=== PATIENT | female | born 1950 ===

== ENCOUNTER 2017-02-02 09:39 | Emergency (ER) | payer MEDICARE, OTHER ==
[2017-02-02 09:57] VITALS: BP 183/92; PULSE 71; TEMP 96; O2SAT 97; BMI 30.9
[2017-02-02] MEDS ORDERED: Sodium Chloride 0.9% 1,000 ML IV STA (10:29)
--- NOTE | 2017-02-02 10:37 | ED PDOC ---
HPI: General Adult Time Seen by Provider: 02/02/17 10:16 Chief Complaint (Nursing): Female Genitourinary Chief Complaint (Provider): Dysuria History Per: Patient History/Exam Limitations: no limitations Onset/Duration Of Symptoms: Days (2 weeks) Current Symptoms Are (Timing): Still Present Additional Complaint(s): Pain on urination, urinates frequently. No abd pain, back pain, dizziness, headaches, numbness, tingles. No chest pain, dyspnea. No fever. States blood in urine today. No weakness. Saw pcp and gave her medicine for symptoms but no antibiotics. Past Medical History Reviewed: Nursing Documentation, Vital Signs Vital Signs: Last Vital Signs Temp 96 F L 02/02/17 09:56 Pulse 71 02/02/17 09:56 Resp BP 183/92 H 02/02/17 09:56 Pulse Ox 97 02/02/17 10:37 - Medical History PMH: Diabetes, HTN, Hypercholesterolemia - Family History Family History: States: Unknown Family Hx - Social History Current smoker - smoking cessation education provided: No Alcohol: None Drugs: Denies - Home Medications Home Medications: Ambulatory Orders Medication Instructions Recorded Hydrocortisone 1% Cream [Cortizone 1 appl TP BID PRN #1 tube 07/06/16 1% Cream] Lisinopril [Zestril] 5 mg PO DAILY 07/06/16 Memantine [Namenda] 5 mg PO DAILY 07/06/16 Ciprofloxacin HCl [Cipro] 500 mg PO BID 7 Days tab 02/02/17 - Allergies Allergies/Adverse Reactions: Allergies Allergy/AdvReac Type Severity Reaction Status Date / Time No Known Allergies Allergy Verified 02/14/15 03:24 Review of Systems ROS Statement: Except As Marked, All Systems Reviewed And Found Negative Genitourinary Female: Positive for: Dysuria, Frequency Physical Exam - Reviewed Nursing Documentation Reviewed: Yes Vital Signs Reviewed: Yes - Physical Exam Appears: Positive for: Well, Non-toxic, No Acute Distress Head Exam: Positive for: ATRAUMATIC, NORMAL INSPECTION, NORMOCEPHALIC Skin: Positive for: Normal Color, Warm, DRY Eye Exam: Positive for: EOMI, Normal appearance, PERRL ENT: Positive for: Normal ENT Inspection Neck: Positive for: Normal, Painless ROM Cardiovascular/Chest: Positive for: Regular Rate, Rhythm Respiratory: Positive for: CNT, Normal Breath Sounds Gastrointestinal/Abdominal: Positive for: Normal Exam, Bowel Sounds, Soft. Negative for: Tenderness Back: Positive for: Normal Inspection. Negative for: L CVA Tenderness, R CVA Tenderness Extremity: Positive for: Normal ROM. Negative for: Tenderness, Pedal Edema Neurologic/Psych: Positive for: Alert, Oriented - Laboratory Results Result Diagrams: 02/02/17 11:00 02/02/17 11:00 Interpretation Of Abn Labs: urine wbc - ECG O2 Sat by Pulse Oximetry: 97 Pulse Ox Interpretation: Normal - CT Scan/US CT Other Rad Studies (CT/US): Read By Radiologist Other Rad Interpretation: adrenal mass - Progress ED Course And Treament: 1401: Stable. AAOx3. Pain free. Patient aware of dx and need for fu of her adrenal mass for further evaluation and treatment. 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 YOU NEED FURTHER EVALUATION AND TREATMENT FOR IT. SEE YOUR DOCTOR IN 2-3 DAYS WITHOUT FAIL. Return if not better in 3 days. Prescriptions: Ciprofloxacin HCl [Cipro] 500 mg PO BID 7 Days tab Instructions: Urinary Tract Infection in Women (ED) Forms: [employer] ([place])
[2017-02-02 11:07] LABS: BASO # 0.1 K/uL (0.0-0.2); BASO % 0.7 % (0.0-2.0); EOS # 0.3 K/uL (0.0-0.7); HEMATOCRIT 41.6 % (34.0-47.0); LYMPH # 2.2 K/uL (1.0-4.3); LYMPH % 23.1 % (20.0-40.0); MEAN CELL VOLUME 87.2 fl (81.0-99.0); MEAN CORPUSCULAR HEMOGLOBIN 29.7 pg (27.0-31.0); MEAN PLATELET VOLUME 8.2 fl (7.2-11.7); MONO # 0.5 K/uL (0.0-0.8); NEUT # 6.4 K/uL (1.8-7.0); NEUT % 68.2 % (50.0-75.0); RED CELL DISTRIBUTION WIDTH 13.6 % (11.5-14.5); WHITE BLOOD COUNT 9.4 K/uL (4.8-10.8)
[2017-02-02 11:11] LABS: RBC URINE 2289 /hpf (0-3); URINE BACTERIA FEW (<OCC); URINE BILIRUBIN NEGATIVE (NEGATIVE); URINE BLOOD LARGE (NEGATIVE); URINE COLOR AMBER (YELLOW); URINE GLUCOSE (UA) NEG (Normal); URINE KETONE NEGATIVE (NEGATIVE); URINE LEUKOCYTE ESTERASE LARGE Leu/uL (Negative); URINE PROTEIN 100 mg/dL (NEGATIVE); URINE UROBILINOGEN 0.2-1.0 mg/dL (0.2-1.0); WBC CLUMPS MANY /hpf; WBC URINE 984 /hpf (0-5)
[2017-02-02 11:13] LABS: ALB/GLOB RATIO 1.3 (1.0-2.1); ALKALINE PHOSPHATASE 67 U/L (38-126); ALT/SGPT 22 U/L (9-52); AST/SGOT 39 U/L (14-36); BILIRUBIN,TOTAL 0.9 mg/dl (0.2-1.3); BLOOD UREA NITROGEN 16 mg/dl (7-17); CALCIUM 9.4 mg/dL (8.4-10.2); CARBON DIOXIDE 24 mmol/L (22-30); CHLORIDE 103 mmol/L (98-107); GFR AFRICAN-AMERICAN > 60; GLUCOSE,RANDOM 111 mg/dL (65-105); SODIUM 140 mmol/l (132-148); TOTAL PROTEIN 8.3 G/DL (6.3-8.2)
[2017-02-02 11:17] LABS: POTASSIUM 4.9 MMOL/L (3.6-5.0)
--- NOTE | 2017-02-02 13:52 | CT ---
PROCEDURE: CT abdomen pelvis dated 02/02/2017. HISTORY: R/O stone COMPARISON: None. TECHNIQUE: Contiguous helical/transaxial images of the abdomen and pelvis pelvis performed without oral or intravenous contrast. Coronal and Sagittal reformats generated. Radiation dose: Total exam DLP = 930.91 mGy-cm. This CT exam was performed using one or more of the following dose reduction techniques: Automated exposure control, adjustment of the mA and/or kV according to patient size, and/or use of iterative reconstruction technique. FINDINGS: LOWER THORAX: There are areas of irregular and linear chronic scarring changes both lung bases that extend to the posterior pleural surfaces. No effusion or basilar pneumothorax. Heart is enlarged. No significant pericardial effusion. LIVER: Liver is enlarged measuring nearly 20 cm in CC dimension. No obvious hepatic mass collection or calcification. GALLBLADDER AND BILE DUCTS: Gallbladder is physiologically distended. No evidence of intraluminal gallbladder calculi. PANCREAS: Pancreas is slightly atrophic. No pancreatic mass collection or calcification. No significant pancreatic ductal dilatation. SPLEEN: Spleen exhibits normal size and attenuation pattern without mass collection or calcification. ADRENALS: There is a large elliptical shaped left adrenal mass that measures approximately 3.5 x 2.7 cm x 3.0. Hounsfield units range between the 9 -- 14 and probably represents an adenoma. Note however lesions greater than 4 cm have increased risk of malignancy. Follow-up MRI of the adrenal glands recommended for further evaluation. Interval followups should also be performed to assess for any changes. KIDNEYS AND URETERS: The kidneys demonstrate relatively symmetric size. No evidence of nephrolithiasis or hydronephrosis. BLADDER: Urinary bladder is physiologically distended. No evidence of intraluminal urinary bladder calculi. . REPRODUCTIVE: Uterus and adnexal structures grossly unremarkable. APPENDIX: Appendix is not seen with complete certainty however 5 no obvious inflammatory changes right lower quadrant of the abdomen. . BOWEL: Evaluation of the bowel is limited due to the lack of oral contrast material. . . The stomach is incompletely distended which presumably accounts for thick-walled appearance. Visualized loops of small bowel exhibit normal contour and caliber. No evidence of acute mechanical small bowel obstruction. Stool and air seen throughout the colon. Scattered colonic diverticula the bulk of which arise from the sigmoid and distal descending colon. No radiographic evidence of acute diverticulitis. PERITONEUM: Unremarkable. No fluid collection. No free air. LYMPH NODES: No significant/ bulky adenopathy. VASCULATURE: Unremarkable. No aortic aneurysm. BONES: No fracture or destructive lesion. OTHER FINDINGS: None. IMPRESSION: No evidence of nephrolithiasis or hydronephrosis. . No evidence of intraluminal urinary bladder calculi. . Elliptical shaped left adrenal mass that measures approximately 3.5 x 2.7 cm x 3.0. Hounsfield units range between the 9 -- 14 and probably represents an adenoma. Note however lesions the greater than 4 cm have increased risk of malignancy. Follow-up MRI of the adrenal glands recommended for further evaluation. Interval followups should also be performed to assess for any changes. Mild hepatomegaly.
== END 2017-02-02 14:21 | disposition home or self-care (01) ==
LOC: H.ER 09:39
DX: N39.0 Urinary tract infection, site not specified (principal); E27.9 Disorder of adrenal gland, unspecified; E11.9 Type 2 diabetes mellitus without complications; E78.00 Pure hypercholesterolemia, unspecified; I10 Essential (primary) hypertension
CPT/HCPCS: 74176; 80053; 81003; 85025; 87086; 96374; 99282; J1885; J7040

== ENCOUNTER 2017-05-14 15:56 | Inpatient (IN) | payer MEDICARE ==
[2017-05-14 15:57] VITALS: BMI 30.9
--- NOTE | 2017-05-14 16:46 | ED PDOC ---
Syncope/Near Syncope/Dizziness Time Seen by Provider: 05/14/17 16:05 Chief Complaint (Nursing): Syncope Chief Complaint (Provider): Syncope History Per: Patient History/Exam Limitations: no limitations Onset/Duration Of Symptoms: Days (1 day ago) Current Symptoms Are (Timing): Gone Now Number Of Syncopal Episodes: 1 Activity At Onset Of Symptoms: Walking Seizure Or Post-ictal Symptoms: None Fall Associated With With Symptoms: No Injury As Result Of Fall Additional Complaint(s): 67 yea old female with a past medical history of hypertension, gastritis and borderline diabetes presents to the ED post syncopal episode. The patient reports that around midnight lastnight she passed out. She states that she was walking in her house and the next thing she knew she was laying on the ground bleeding from the face laying in her own urine and stool. As per patient, the EMS were called but she declined transport at said time. The reports that she spent the entire day today in bed before her family was able to convince her to come in to the hospital to be evaluated. In addition, the patient states that for the past week she has had a cough productive of white sputum. Patient also notes some mild rhinnorhea. The patient states that she had been taking over the counter medication for relief of her symtoms but they have not offered much help. According to the patients granddaughter, at [place] the patient seemed a bit slow and confused. Denies hemoptysis, fever, abdominal pain, fever, vomit. PMD: Travis Bee - Risk Factors TAD Risk Factors: Pos: Hypertension Past Medical History Reviewed: Historical Data, Nursing Documentation, Vital Signs Vital Signs: Last Vital Signs Temp 97 F L 05/14/17 16:00 Pulse 48 L 05/14/17 16:00 Resp 20 05/14/17 16:00 BP 129/73 05/14/17 16:00 Pulse Ox 100 05/14/17 16:00 - Medical History PMH: Diabetes (borderline), HTN, Hypercholesterolemia - Surgical History Surgical History: Appendectomy - Family History Family History: States: Unknown Family Hx - Living Arrangements Living Arrangements: With Family - Social History Current smoker - smoking cessation education provided: No Ex-Smoker (has not smoked in the last 12 months): No Alcohol: None Drugs: Denies - Home Medications Home Medications: Ambulatory Orders Medication Instructions Recorded Lisinopril/Hydrochlorothiazide 1 each PO HS 05/14/17 [Lisinopril-Hctz 20-12.5 mg Tab] Pheniramine/P-Eph/Acetaminophn 1 each PO PRN PRN 05/14/17 [Theraflu Flu & Sore Throat] - Allergies Allergies/Adverse Reactions: Allergies Allergy/AdvReac Type Severity Reaction Status Date / Time No Known Allergies Allergy Verified 02/14/15 03:24 Review of Systems ROS Statement: Except As Marked, All Systems Reviewed And Found Negative (and as per HPI) Constitutional: Negative for: Fever, Chills ENT: Positive for: Nose Discharge Respiratory: Positive for: Cough (productive of white sputum), Sputum (white). Negative for: Hemoptysis Gastrointestinal: Positive for: Diarrhea. Negative for: Vomiting, Abdominal Pain Neurological: Positive for: Other (syncope) Physical Exam - Reviewed Nursing Documentation Reviewed: Yes Vital Signs Reviewed: Yes - Physical Exam Appears: Positive for: Non-toxic, No Acute Distress Head Exam: Positive for: ATRAUMATIC, NORMOCEPHALIC Skin: Positive for: Warm, Dry, Pallor Eye Exam: Positive for: EOMI, PERRL ENT: Positive for: Pharynx Is (clear with dry mucus membranes), Other ( superficial irregular linear laceration 1 cm upper lip inner mucosa with mild edema) Neck: Positive for: Painless ROM, Supple Cardiovascular/Chest: Positive for: Chest Non Tender, Bradycardia. Negative for : Murmur Respiratory: Positive for: Normal Breath Sounds. Negative for: Wheezing, Respiratory Distress Gastrointestinal/Abdominal: Positive for: Soft. Negative for: Tenderness, Mass , Distended, Guarding Back: Positive for: Normal Inspection. Negative for: Decreased ROM Extremity: Positive for: Normal ROM. Negative for: Deformity Lymphatic: Negative for: Adenopathy Neurologic/Psych: Positive for: Alert. Negative for: Motor/Sensory Deficits - Laboratory Results Result Diagrams: 05/14/17 16:39 05/14/17 16:39 - ECG ECG Rhythm: Positive for: Sinus Bradycardia, Nonspecific Changes O2 Sat by Pulse Oximetry: 100 (RA) Pulse Ox Interpretation: Normal Medical Decision Making Medical Decision Makin Initial Impression 68 y/o female presenting with syncope and bradycardia Pt will need hospitalization for full cardiac workup to determine cause and correct bradycardia, which most likely contributed to this patient's syncope and reported episodes of altered mental status. Differentials: arrhythmia, hypothyroidism, electrolyte abnormality, acute coronary syndrome, sepsis, dehydration, pneumonia Initial Plan: * Type and Screen * VBG * CT Head w/o Contrast * CT Maxillofacial w/o Contrast * EKG * Alcohol Serum * B-type natriuretic * CMP * CPK * Drug Screen * Magnesium * Phosphorous * Thyroid Stimulant * Troponin * Udip * CBC * Partial Thromboplastin * Prothrombin time * CXR * Blood culture * Accucheck * Influenza A B * Reevaluation 1655 PROCEDURE: CT HEAD WITHOUT CONTRAST. HISTORY: head injury bradycardi COMPARISON: None available. TECHNIQUE: Axial computed tomography images were obtained through the head/brain without intravenous contrast. Radiation dose: Total exam DLP = 808.07 mGy-cm. This CT exam was performed using one or more of the following dose reduction techniques: Automated exposure control, adjustment of the mA and/or kV according to patient size, and/or use of iterative reconstruction technique. FINDINGS: HEMORRHAGE: No intracranial hemorrhage. BRAIN: No mass effect or edema. No atrophy or chronic microvascular ischemic changes. VENTRICLES: Unremarkable. No hydrocephalus. CALVARIUM: Unremarkable. PARANASAL SINUSES: Mucoperiosteal thickening in right maxillary antrum and ethmoid sinus. MASTOID AIR CELLS: Unremarkable as visualized. No inflammatory changes. OTHER FINDINGS: None. IMPRESSION: No intracranial hemorrhage. Chronic right maxillary and ethmoid sinusitis. Otherwise unremarkable. 170 PROCEDURE: CT MAXILLOFACIAL BONES WITHOUT CONTRAST HISTORY: facial injury sp syncope COMPARISON: None TECHNIQUE: Contiguous axial CT images of the maxillofacial bones were obtained. Coronal and sagittal reformats were generated. Radiation dose: Total exam DLP = 692.61 mGy-cm. This CT exam was performed using one or more of the following dose reduction techniques: Automated exposure control, adjustment of the mA and/or kV according to patient size, and/or use of iterative reconstruction technique. FINDINGS: NASAL BONES: Unremarkable. ORBITS: Unremarkable. PARANASAL SINUSES/ MASTOIDS: Chronic right maxillary sinusitis. Chronic ethmoid sinusitis. MAXILLA: Unremarkable. MANDIBLE/ TEMPOROMANDIBULAR JOINTS: Unremarkable. SKULL BASE: Unremarkable. TEMPORAL BONES: Middle ears and mastoid grossly unremarkable. OTHER FINDINGS: None. IMPRESSION: No evidence facial fracture. Chronic ethmoid and right maxillary sinusitis. Elevated BUN. No emergently significant lab abnormalities. Documented by Chioma Murphy acting as a scribe for Anna Lopez MD. All medical record entries made by the Scribe were at my direction and personally dictated by me. I have reviewed the chart and agree that the record accurately reflects my personal performance of the history, physical exam, medical decision making, and the department course for this patient. I have also personally directed, reviewed, and agree with the discharge instructions and disposition. Disposition - Clinical Impression Clinical Impression: Syncope, Bradycardia, Altered mental status Discussed With : Bob Farias Counseled Patient/Family Regarding: Studies Performed, Diagnosis - Disposition Disposition Time: 17:00 Condition: GUARDED - Pt Status Changed To: Hospital Disposition Of: Observation - POA Present On Arrival: Falls Or Trauma
[2017-05-14 16:55] LABS: ALBUMIN 4.6 g/dL (3.5-5.0); CALCIUM 9.5 mg/dL (8.4-10.2); GFR AFRICAN-AMERICAN 60; GFR NON-AFRICAN AMERICAN 49
[2017-05-14 16:57] LABS: BASO % 0.7 % (0.0-2.0); EOS # 0.1 K/uL (0.0-0.7); EOS % 1.9 % (0.0-4.0); HEMOGLOBIN 13.3 g/dL (12.0-16.0); LYMPH # 2.7 K/uL (1.0-4.3); LYMPH % 38.5 % (20.0-40.0); MEAN CORPUSCULAR HEMOGLOBIN 29.4 pg (27.0-31.0); MEAN CORPUSCULAR HGB CONC 34.2 g/dL (33.0-37.0); MONO # 0.6 K/uL (0.0-0.8); NEUT # 3.5 K/uL (1.8-7.0); NEUT % 49.9 % (50.0-75.0); NRBC % 0.1 % (0.0-0.0); RBC 4.52 Mil/uL (3.80-5.20); RED CELL DISTRIBUTION WIDTH 14.1 % (11.5-14.5)
--- NOTE | 2017-05-14 16:59 | CT ---
PROCEDURE: CT HEAD WITHOUT CONTRAST. HISTORY: head injury bradycardi COMPARISON: None available. TECHNIQUE: Axial computed tomography images were obtained through the head/brain without intravenous contrast. Radiation dose: Total exam DLP = 808.07 mGy-cm. This CT exam was performed using one or more of the following dose reduction techniques: Automated exposure control, adjustment of the mA and/or kV according to patient size, and/or use of iterative reconstruction technique. FINDINGS: HEMORRHAGE: No intracranial hemorrhage. BRAIN: No mass effect or edema. No atrophy or chronic microvascular ischemic changes. VENTRICLES: Unremarkable. No hydrocephalus. CALVARIUM: Unremarkable. PARANASAL SINUSES: Mucoperiosteal thickening in right maxillary antrum and ethmoid sinus. MASTOID AIR CELLS: Unremarkable as visualized. No inflammatory changes. OTHER FINDINGS: None. IMPRESSION: No intracranial hemorrhage. Chronic right maxillary and ethmoid sinusitis. Otherwise unremarkable.
[2017-05-14 17:03] LABS: ALB/GLOB RATIO 1.2 (1.0-2.1); ALT/SGPT 36 U/L (9-52); AST/SGOT 32 U/L (14-36); BLOOD UREA NITROGEN 40 mg/dl (7-17); MAGNESIUM 2.6 MG/DL (1.6-2.3)
--- NOTE | 2017-05-14 17:03 | CT ---
PROCEDURE: CT MAXILLOFACIAL BONES WITHOUT CONTRAST HISTORY: facial injury sp syncope COMPARISON: None TECHNIQUE: Contiguous axial CT images of the maxillofacial bones were obtained. Coronal and sagittal reformats were generated. Radiation dose: Total exam DLP = 692.61 mGy-cm. This CT exam was performed using one or more of the following dose reduction techniques: Automated exposure control, adjustment of the mA and/or kV according to patient size, and/or use of iterative reconstruction technique. FINDINGS: NASAL BONES: Unremarkable. ORBITS: Unremarkable. PARANASAL SINUSES/ MASTOIDS: Chronic right maxillary sinusitis. Chronic ethmoid sinusitis. MAXILLA: Unremarkable. MANDIBLE/ TEMPOROMANDIBULAR JOINTS: Unremarkable. SKULL BASE: Unremarkable. TEMPORAL BONES: Middle ears and mastoid grossly unremarkable. OTHER FINDINGS: None. IMPRESSION: No evidence facial fracture. Chronic ethmoid and right maxillary sinusitis.
[2017-05-14 17:06] LABS: VENOUS BLOOD GAS BASE EXCESS 2.5 mmol/L (0.0-2.0); VENOUS BLOOD GAS PCO2 45 mmHg (40-60); VENOUS BLOOD GAS PO2 45 mm/Hg (30-55)
[2017-05-14 17:06] LABS: B-TYPE NATRIURETIC PEPTIDE 49.2 pg/ml (0-900); PARTIAL THROMBOPLASTIN TIME 25.7 Seconds (25.6-37.1); PROTHROMBIN TIME 11.4 Seconds (9.8-13.1)
[2017-05-14] MEDS ORDERED: Sodium Chloride 0.9% 500 ML IV STA (17:10)
--- NOTE | 2017-05-14 17:52 | RAD ---
HISTORY: bradycardia cough COMPARISON: 12/21/2007 FINDINGS: LUNGS: Linear scar, vertically-oriented, at left base. Unchanged from 2008. No acute infiltrate. PLEURA: No significant pleural effusion identified, no pneumothorax apparent. CARDIOVASCULAR: Normal. OSSEOUS STRUCTURES: No significant abnormalities. VISUALIZED UPPER ABDOMEN: Normal. OTHER FINDINGS: None. IMPRESSION: No active disease.
[2017-05-14 18:24] LABS: SQUAMOUS EPITHIAL 4 /hpf (0-5); URINE BACTERIA RARE (<OCC); URINE BILIRUBIN NEGATIVE (NEGATIVE); URINE BLOOD NEGATIVE (NEGATIVE); URINE CLARITY SLIGHTY-CLOUDY (Clear); URINE COLOR YELLOW (YELLOW); URINE GLUCOSE (UA) NEG (Normal); URINE LEUKOCYTE ESTERASE TRACE Leu/uL (Negative); URINE NITRATE NEGATIVE (NEGATIVE); URINE PROTEIN NEGATIVE (NEGATIVE); URINE UROBILINOGEN 0.2-1.0 mg/dL (0.2-1.0)
[2017-05-14 18:33] LABS: BARBITURATES, UR NEGATIVE (NEGATIVE); BENZODIAZEPINES, UR NEGATIVE (NEGATIVE); OPIATES, UR NEGATIVE (NEGATIVE); PHENCYCLIDINE, UR NEGATIVE (NEGATIVE)
[2017-05-14] MEDS ORDERED: Alum-Mag Hydrox-Simethicone Susp (30 mL) PO PRN (18:38)
--- NOTE | 2017-05-14 18:44 | CP.PCM.HP ---
History of Present Illness - History of Present Illness History of Present Illness: CC: "I passed out" This is a 67 year old female with a past medical history significant for Type 2 DM, Essential hypertension, prediabetes (on no diabetic medications), and gastritis, who presented to the ED with c/o syncope. The patient states that last night around midnight she was walking from her bed to the bathroom and the next thing she knew she was lying facedown on the ground. She was confused when she woke up and stated that she was very weak at first and it took her an unknown amount of time to get up off of the ground. She was also incontinent of both urine and feces. She did not bite her tongue, but does have small upper lip abrasion and forehead abrasion. When she woke up her forehead and the floor had some blood on it as well. EMT was initially called, however she then decided to call them off. Throughout the day today, the patient c/o being very weak and tired. Of note over the past week she has had cough, occasionally productive of sputum. In the ED, the patient was placed on telemetry and found to have HR in the low 40's. BP was normotensive, however as per the family the patient was always in the systolic 150's so a blood pressure in the 120's systolic was abnormal for her. Laboratory results reveal a normal CBC and normal CMP other than a mildly elevated BUN of 40, but normal Cr of 1.1. CT scan of the head was performed and showed no acute intracranial abnormalities. Maxillofacial CT scan was also done which revealed sinusitis but otherwise no abnormalities. Both cardiology and neurology to be called as the patient has concern for seizure vs arrhythmia as etiology of her syncope. The patient denies headache, cp, sob, n/v/d, weakness. She has never had hx of arrhythmias or of seizures ever in her life. She has never seen a nursing home director before. PMD: Travis Bee Present on Admission - Present on Admission Any Indicators Present on Admission: No Review of Systems - Review of Systems All systems: reviewed and no additional remarkable complaints except (what was dictated in HPI.) Past Patient History - Infectious Disease Hx of Infectious Diseases: None - Past Social History Alcohol: None Drugs: Denies - CARDIAC Hx Hypercholesterolemia: Yes Hx Hypertension: Yes - ENDOCRINE/METABOLIC Hx Diabetes Mellitus Type 2: Yes - PSYCHIATRIC Hx Substance Use: No - SURGICAL HISTORY Hx Appendectomy: Yes Meds Allergies/Adverse Reactions: Allergies Allergy/AdvReac Type Severity Reaction Status Date / Time No Known Allergies Allergy Verified 02/14/15 03:24 Physical Exam - Additional Findings Additional findings: Physical exam: Constitutional- cooperative, awake, alert Head- + Abrasion to upper lip, small forehead abrasion. PERRL Eye- PERRL, EOMI ENT- normal exam, MMM. Neck- normal inspection, supple, no JVD Respiratory- CTAB, no wheezes rales rhonchi Cardiovascular- RRR, +S1, +S2 no MRG GI/Abdominal- normal bowel sounds, soft, no mass, no hsm Skin- warm, dry Extremities Exam- normal capillary refill, normal inspection Neurological Exam- alert, awake, oriented Psych- normal mood, normal affect Results - Vital Signs Recent Vital Signs: Last Vital Signs Temp 98.4 F 05/14/17 18:07 Pulse 48 L 05/14/17 18:07 Resp 12 05/14/17 18:07 BP 125/75 05/14/17 18:07 Pulse Ox 98 05/14/17 18:07 - Labs Result Diagrams: 05/14/17 16:39 05/14/17 16:39 Labs: Laboratory Results - last 24 hr 05/14/17 05/14/17 05/14/17 16:16 16:29 16:30 WBC RBC Hgb Hct MCV MCH MCHC RDW Plt Count MPV Neut % (Auto) Lymph % (Auto) [place] % (Auto) Eos % (Auto) Baso % (Auto) Neut # Lymph # [place] # Eos # Baso # PT INR APTT pO2 45 VBG pH 7.40 VBG pCO2 45 VBG HCO3 26.4 VBG Total CO2 29.3 H VBG O2 Sat (Calc) 85.1 H VBG Base Excess 2.5 H VBG Potassium 3.3 L Sodium 135.0 Chloride 107.0 Glucose 108 H Lactate 1.8 FiO2 21.0 Potassium Carbon Dioxide Anion Gap BUN Creatinine Est GFR ( Amer) Est GFR (Non-Af Amer) POC Glucose (mg/dL) 97 Random Glucose Calcium Phosphorus Magnesium Total Bilirubin AST ALT Alkaline Phosphatase Total Creatine Kinase Troponin I NT-Pro-B Natriuret Pep Total Protein Albumin Globulin Albumin/Globulin Ratio TSH 3rd Generation Venous Blood Potassium 3.3 L Urine Color Urine Clarity Urine pH Ur Specific [place] Urine Protein Urine Glucose (UA) Urine Ketones Urine Blood Urine Nitrate Urine Bilirubin Urine Urobilinogen Ur Leukocyte Esterase Urine RBC (Auto) Urine Microscopic WBC Ur Squamous Epith Cells Urine Bacteria Hyaline Casts Urine Opiates Screen Urine Methadone Screen Ur Barbiturates Screen Ur Phencyclidine Scrn Ur Amphetamines Screen U Benzodiazepines Scrn U Oth Cocaine Metabols U Cannabinoids Screen Alcohol, Quantitative Influenza Typ A,B (EIA) Blood Type O POSITIVE Antibody Screen Negative BBK History Checked No verified bt 05/14/17 05/14/17 05/14/17 16:39 16:39 16:39 WBC 7.0 RBC 4.52 Hgb 13.3 Hct 38.9 MCV 86.0 MCH 29.4 MCHC 34.2 RDW 14.1 Plt Count 179 MPV 9.0 Neut % (Auto) 49.9 L Lymph % (Auto) 38.5 [place] % (Auto) 9.0 Eos % (Auto) 1.9 Baso % (Auto) 0.7 Neut # 3.5 Lymph # 2.7 [place] # 0.6 Eos # 0.1 Baso # 0.0 PT 11.4 INR 1.0 APTT 25.7 pO2 VBG pH VBG pCO2 VBG HCO3 VBG Total CO2 VBG O2 Sat (Calc) VBG Base Excess VBG Potassium Sodium 139 Chloride 103 Glucose Lactate FiO2 Potassium 3.8 Carbon Dioxide 27 Anion Gap 13 BUN 40 H Creatinine 1.1 Est GFR ( Amer) 60 Est GFR (Non-Af Amer) 49 POC Glucose (mg/dL) Random Glucose 104 Calcium 9.5 Phosphorus 4.1 Magnesium 2.6 H Total Bilirubin 0.6 AST 32 ALT 36 Alkaline Phosphatase 59 Total Creatine Kinase 67 Troponin I 0.0130 NT-Pro-B Natriuret Pep 49.2 Total Protein 8.4 H Albumin 4.6 Globulin 3.8 Albumin/Globulin Ratio 1.2 TSH 3rd Generation 0.98 Venous Blood Potassium Urine Color Urine Clarity Urine pH Ur Specific [place] Urine Protein Urine Glucose (UA) Urine Ketones Urine Blood Urine Nitrate Urine Bilirubin Urine Urobilinogen Ur Leukocyte Esterase Urine RBC (Auto) Urine Microscopic WBC Ur Squamous Epith Cells Urine Bacteria Hyaline Casts Urine Opiates Screen Urine Methadone Screen Ur Barbiturates Screen Ur Phencyclidine Scrn Ur Amphetamines Screen U Benzodiazepines Scrn U Oth Cocaine Metabols U Cannabinoids Screen Alcohol, Quantitative < 10 Influenza Typ A,B (EIA) Blood Type Antibody Screen BBK History Checked 05/14/17 05/14/17 05/14/17 16:48 17:33 17:39 WBC RBC Hgb Hct MCV MCH MCHC RDW Plt Count MPV Neut % (Auto) Lymph % (Auto) [place] % (Auto) Eos % (Auto) Baso % (Auto) Neut # Lymph # [place] # Eos # Baso # PT INR APTT pO2 VBG pH VBG pCO2 VBG HCO3 VBG Total CO2 VBG O2 Sat (Calc) VBG Base Excess VBG Potassium Sodium Chloride Glucose Lactate FiO2 Potassium Carbon Dioxide Anion Gap BUN Creatinine Est GFR ( Amer) Est GFR (Non-Af Amer) POC Glucose (mg/dL) Random Glucose Calcium Phosphorus Magnesium Total Bilirubin AST ALT Alkaline Phosphatase Total Creatine Kinase Troponin I NT-Pro-B Natriuret Pep Total Protein Albumin Globulin Albumin/Globulin Ratio TSH 3rd Generation Venous Blood Potassium Urine Color Yellow Urine Clarity Slighty-cloudy Urine pH 5.0 Ur Specific [place] 1.011 Urine Protein Negative Urine Glucose (UA) Neg Urine Ketones Negative Urine Blood Negative Urine Nitrate Negative Urine Bilirubin Negative Urine Urobilinogen 0.2-1.0 Ur Leukocyte Esterase Trace Urine RBC (Auto) 3 Urine Microscopic WBC 16 H Ur Squamous Epith Cells 4 Urine Bacteria Rare Hyaline Casts 3-5 H Urine Opiates Screen Negative Urine Methadone Screen Negative Ur Barbiturates Screen Negative Ur Phencyclidine Scrn Negative Ur Amphetamines Screen Negative U Benzodiazepines Scrn Negative U Oth Cocaine Metabols Negative U Cannabinoids Screen Negative Alcohol, Quantitative Influenza Typ A,B (EIA) Negative for flu a/b Blood Type Antibody Screen BBK History Checked Assessment & Plan - Assessment and Plan (Free Text) Plan: ASSESSMENT/PLAN 1) Syncope in the setting of bradycardia, unclear etiology, r/o cardiogenic ( sick sinus syndrome), also neurogenic (r/o seizure etiology) - Admit to telemetry floor - Consultation with Dr. Kenney - Echocardiogram - EKG daily - Troponin WNL - Consultation with Dr. Shepard for seizure workup - pt bradycardic but otherwise hemodynamically stable for telemetry floor. 2) Essential hypertension- normotensive at this point - Holding all antihypertensive medications - Monitor vitals - Restart her lisinopril/HCTZ if BP increases 3) Prediabetes hx - No hyperglycemia on admission - Monitor with BMP for now 4) Adrenal mass as previously documented - Worked up in the past, no evidence of elevated metanephrine levels - Patient to have biopsy scheduled as outpatient 5) Hx gastritis - Maalox PRN 6) DVT prophylaxis - SCDs as pt is a fall risk
[2017-05-14] MEDS ORDERED: guaiFENesin 200 mg/10 ml Syrup UD PO PRN (20:14)
[2017-05-14] MEDS ORDERED: Bacitracin/Neomycin/Polymyxin OPHT OINT OD SCH (21:00)
[2017-05-14 21:34] LABS: HDL CHOLESTEROL 23 MG/DL (30-70); LDL CHOLESTEROL 84 mg/dL (0-129)
[2017-05-15 07:59] LABS: HEMOGLOBIN 12.3 g/dL (12.0-16.0); MEAN CELL VOLUME 86.8 fl (81.0-99.0); MEAN CORPUSCULAR HEMOGLOBIN 29.6 pg (27.0-31.0); MEAN CORPUSCULAR HGB CONC 34.1 g/dL (33.0-37.0); RBC 4.16 Mil/uL (3.80-5.20); RED CELL DISTRIBUTION WIDTH 13.9 % (11.5-14.5)
[2017-05-15 08:33] LABS: BLOOD UREA NITROGEN 24 mg/dl (7-17); CALCIUM 9.1 mg/dL (8.4-10.2); GFR AFRICAN-AMERICAN > 60; GFR NON-AFRICAN AMERICAN > 60
--- NOTE | 2017-05-15 09:07 | CP.PCM.CON ---
History of Present Illness - History of Present Illness History of Present Illness: 67 y/o admitted with Syncope LOC was sudden w/o warning NO chest pain/SOB/AGEE/Palpitations/dizziness has never had dizzy episodes prior claims when she got up she found she was lying in a pool of urine Cardiology consult called for bradycardia Pt has had bradycardia for at least 2 years has never had a problem with this PMH: Hypertension DM II Gastritis EKG: Sinus Bradycardia Troponin: neg Past Patient History - Infectious Disease Hx of Infectious Diseases: None - Past Medical History & Family History Past Medical History?: Yes - Past Social History Smoking Status: Never Smoked - CARDIAC Hx Hypercholesterolemia: Yes Hx Hypertension: Yes - PULMONARY Hx Respiratory Disorders: No - NEUROLOGICAL Hx Neurological Disorder: No - HEENT Hx HEENT Problems: No - RENAL Hx Chronic Kidney Disease: No - ENDOCRINE/METABOLIC Hx Diabetes Mellitus Type 2: Yes - HEMATOLOGICAL/ONCOLOGICAL Hx Blood Disorders: No Hx AIDS: No Hx Human Immunodeficiency Virus (HIV): No - INTEGUMENTARY Hx Dermatological Problems: No - MUSCULOSKELETAL/RHEUMATOLOGICAL Hx Musculoskeletal Disorders: No Hx Falls: Yes - GASTROINTESTINAL Hx Gastritis: Yes - GENITOURINARY/GYNECOLOGICAL Hx Genitourinary Disorders: No - PSYCHIATRIC Hx Substance Use: No - SURGICAL HISTORY Hx Appendectomy: Yes - ANESTHESIA Hx Anesthesia: Yes Hx Anesthesia Reactions: No Meds Allergies/Adverse Reactions: Allergies Allergy/AdvReac Type Severity Reaction Status Date / Time No Known Allergies Allergy Verified 02/14/15 03:24 - Medications Medications: Current Medications Acetaminophen (Tylenol 325mg Tab) 650 mg PO Q6 PRN PRN Reason: Pain, Mild (1-3) Last Admin: 05/15/17 08:23 Dose: 650 mg Al Hydrox/Mg Hydrox/Simethicone (Maalox Plus 30 Ml) 30 ml PO Q6 PRN PRN Reason: Indigestion / Heartburn Guaifenesin (Robitussin) 200 mg PO Q6 PRN PRN Reason: Cough Last Admin: 05/15/17 08:25 Dose: 200 mg Mirtazapine (Remeron) 15 mg PO HS STAS Last Admin: 05/14/17 22:47 Dose: Not Given Physical Exam - Constitutional Appears: Well - Eye Exam Eye Exam: Normal appearance - ENT Exam ENT Exam: Normal Exam - Respiratory Exam Respiratory Exam: NORMAL BREATHING PATTERN - Cardiovascular Exam Cardiovascular Exam: REGULAR RHYTHM Additional comments: heart rate at time of exam is 68 BPM Results - Vital Signs Recent Vital Signs: Last Vital Signs Temp 98.4 F 05/15/17 08:26 Pulse 52 L 05/15/17 08:26 Resp 18 05/15/17 08:26 BP 128/63 05/15/17 08:26 Pulse Ox 93 L 05/15/17 08:26 - Labs Result Diagrams: 05/15/17 06:30 05/15/17 06:30 Labs: Laboratory Results - last 24 hr 05/14/17 05/14/17 05/14/17 16:16 16:29 16:30 WBC RBC Hgb Hct MCV MCH MCHC RDW Plt Count MPV Neut % (Auto) Lymph % (Auto) [place] % (Auto) Eos % (Auto) Baso % (Auto) Neut # Lymph # [place] # Eos # Baso # PT INR APTT pO2 45 VBG pH 7.40 VBG pCO2 45 VBG HCO3 26.4 VBG Total CO2 29.3 H VBG O2 Sat (Calc) 85.1 H VBG Base Excess 2.5 H VBG Potassium 3.3 L Sodium 135.0 Chloride 107.0 Glucose 108 H Lactate 1.8 FiO2 21.0 Potassium Carbon Dioxide Anion Gap BUN Creatinine Est GFR ( Amer) Est GFR (Non-Af Amer) POC Glucose (mg/dL) 97 Random Glucose Calcium Phosphorus Magnesium Total Bilirubin AST ALT Alkaline Phosphatase Total Creatine Kinase Troponin I NT-Pro-B Natriuret Pep Total Protein Albumin Globulin Albumin/Globulin Ratio Triglycerides Cholesterol LDL Cholesterol Direct HDL Cholesterol TSH 3rd Generation Venous Blood Potassium 3.3 L Urine Color Urine Clarity Urine pH Ur Specific [place] Urine Protein Urine Glucose (UA) Urine Ketones Urine Blood Urine Nitrate Urine Bilirubin Urine Urobilinogen Ur Leukocyte Esterase Urine RBC (Auto) Urine Microscopic WBC Ur Squamous Epith Cells Urine Bacteria Hyaline Casts Urine Opiates Screen Urine Methadone Screen Ur Barbiturates Screen Ur Phencyclidine Scrn Ur Amphetamines Screen U Benzodiazepines Scrn U Oth Cocaine Metabols U Cannabinoids Screen Alcohol, Quantitative Influenza Typ A,B (EIA) Blood Type O POSITIVE Antibody Screen Negative BBK History Checked No verified bt 05/14/17 05/14/17 05/14/17 16:39 16:39 16:39 WBC 7.0 RBC 4.52 Hgb 13.3 Hct 38.9 MCV 86.0 MCH 29.4 MCHC 34.2 RDW 14.1 Plt Count 179 MPV 9.0 Neut % (Auto) 49.9 L Lymph % (Auto) 38.5 [place] % (Auto) 9.0 Eos % (Auto) 1.9 Baso % (Auto) 0.7 Neut # 3.5 Lymph # 2.7 [place] # 0.6 Eos # 0.1 Baso # 0.0 PT 11.4 INR 1.0 APTT 25.7 pO2 VBG pH VBG pCO2 VBG HCO3 VBG Total CO2 VBG O2 Sat (Calc) VBG Base Excess VBG Potassium Sodium 139 Chloride 103 Glucose Lactate FiO2 Potassium 3.8 Carbon Dioxide 27 Anion Gap 13 BUN 40 H Creatinine 1.1 Est GFR ( Amer) 60 Est GFR (Non-Af Amer) 49 POC Glucose (mg/dL) Random Glucose 104 Calcium 9.5 Phosphorus 4.1 Magnesium 2.6 H Total Bilirubin 0.6 AST 32 ALT 36 Alkaline Phosphatase 59 Total Creatine Kinase 67 Troponin I 0.0130 NT-Pro-B Natriuret Pep 49.2 Total Protein 8.4 H Albumin 4.6 Globulin 3.8 Albumin/Globulin Ratio 1.2 Triglycerides Cholesterol LDL Cholesterol Direct HDL Cholesterol TSH 3rd Generation 0.98 Venous Blood Potassium Urine Color Urine Clarity Urine pH Ur Specific [place] Urine Protein Urine Glucose (UA) Urine Ketones Urine Blood Urine Nitrate Urine Bilirubin Urine Urobilinogen Ur Leukocyte Esterase Urine RBC (Auto) Urine Microscopic WBC Ur Squamous Epith Cells Urine Bacteria Hyaline Casts Urine Opiates Screen Urine Methadone Screen Ur Barbiturates Screen Ur Phencyclidine Scrn Ur Amphetamines Screen U Benzodiazepines Scrn U Oth Cocaine Metabols U Cannabinoids Screen Alcohol, Quantitative < 10 Influenza Typ A,B (EIA) Blood Type Antibody Screen BBK History Checked 05/14/17 05/14/17 05/14/17 16:48 17:33 17:39 WBC RBC Hgb Hct MCV MCH MCHC RDW Plt Count MPV Neut % (Auto) Lymph % (Auto) [place] % (Auto) Eos % (Auto) Baso % (Auto) Neut # Lymph # [place] # Eos # Baso # PT INR APTT pO2 VBG pH VBG pCO2 VBG HCO3 VBG Total CO2 VBG O2 Sat (Calc) VBG Base Excess VBG Potassium Sodium Chloride Glucose Lactate FiO2 Potassium Carbon Dioxide Anion Gap BUN Creatinine Est GFR ( Amer) Est GFR (Non-Af Amer) POC Glucose (mg/dL) Random Glucose Calcium Phosphorus Magnesium Total Bilirubin AST ALT Alkaline Phosphatase Total Creatine Kinase Troponin I NT-Pro-B Natriuret Pep Total Protein Albumin Globulin Albumin/Globulin Ratio Triglycerides Cholesterol LDL Cholesterol Direct HDL Cholesterol TSH 3rd Generation Venous Blood Potassium Urine Color Yellow Urine Clarity Slighty-cloudy Urine pH 5.0 Ur Specific [place] 1.011 Urine Protein Negative Urine Glucose (UA) Neg Urine Ketones Negative Urine Blood Negative Urine Nitrate Negative Urine Bilirubin Negative Urine Urobilinogen 0.2-1.0 Ur Leukocyte Esterase Trace Urine RBC (Auto) 3 Urine Microscopic WBC 16 H Ur Squamous Epith Cells 4 Urine Bacteria Rare Hyaline Casts 3-5 H Urine Opiates Screen Negative Urine Methadone Screen Negative Ur Barbiturates Screen Negative Ur Phencyclidine Scrn Negative Ur Amphetamines Screen Negative U Benzodiazepines Scrn Negative U Oth Cocaine Metabols Negative U Cannabinoids Screen Negative Alcohol, Quantitative Influenza Typ A,B (EIA) Negative for flu a/b Blood Type Antibody Screen BBK History Checked 05/14/17 05/14/17 05/15/17 20:14 21:46 05:10 WBC RBC Hgb Hct MCV MCH MCHC RDW Plt Count MPV Neut % (Auto) Lymph % (Auto) [place] % (Auto) Eos % (Auto) Baso % (Auto) Neut # Lymph # [place] # Eos # Baso # PT INR APTT pO2 VBG pH VBG pCO2 VBG HCO3 VBG Total CO2 VBG O2 Sat (Calc) VBG Base Excess VBG Potassium Sodium Chloride Glucose Lactate FiO2 Potassium Carbon Dioxide Anion Gap BUN Creatinine Est GFR ( Amer) Est GFR (Non-Af Amer) POC Glucose (mg/dL) 149 H 112 H Random Glucose Calcium Phosphorus Magnesium Total Bilirubin AST ALT Alkaline Phosphatase Total Creatine Kinase Troponin I NT-Pro-B Natriuret Pep Total Protein Albumin Globulin Albumin/Globulin Ratio Triglycerides 432 H Cholesterol 170 LDL Cholesterol Direct 84 HDL Cholesterol 23 L TSH 3rd Generation Venous Blood Potassium Urine Color Urine Clarity Urine pH Ur Specific [place] Urine Protein Urine Glucose (UA) Urine Ketones Urine Blood Urine Nitrate Urine Bilirubin Urine Urobilinogen Ur Leukocyte Esterase Urine RBC (Auto) Urine Microscopic WBC Ur Squamous Epith Cells Urine Bacteria Hyaline Casts Urine Opiates Screen Urine Methadone Screen Ur Barbiturates Screen Ur Phencyclidine Scrn Ur Amphetamines Screen U Benzodiazepines Scrn U Oth Cocaine Metabols U Cannabinoids Screen Alcohol, Quantitative Influenza Typ A,B (EIA) Blood Type Antibody Screen BBK History Checked 05/15/17 05/15/17 06:30 06:30 WBC 8.0 RBC 4.16 Hgb 12.3 Hct 36.1 MCV 86.8 MCH 29.6 MCHC 34.1 RDW 13.9 Plt Count 152 MPV Neut % (Auto) Lymph % (Auto) [place] % (Auto) Eos % (Auto) Baso % (Auto) Neut # Lymph # [place] # Eos # Baso # PT INR APTT pO2 VBG pH VBG pCO2 VBG HCO3 VBG Total CO2 VBG O2 Sat (Calc) VBG Base Excess VBG Potassium Sodium 137 Chloride 103 Glucose Lactate FiO2 Potassium 3.5 L Carbon Dioxide 30 Anion Gap 8 L BUN 24 H Creatinine 0.9 Est GFR ( Amer) > 60 Est GFR (Non-Af Amer) > 60 POC Glucose (mg/dL) Random Glucose 113 H Calcium 9.1 Phosphorus Magnesium Total Bilirubin AST ALT Alkaline Phosphatase Total Creatine Kinase Troponin I NT-Pro-B Natriuret Pep Total Protein Albumin Globulin Albumin/Globulin Ratio Triglycerides Cholesterol LDL Cholesterol Direct HDL Cholesterol TSH 3rd Generation Venous Blood Potassium Urine Color Urine Clarity Urine pH Ur Specific [place] Urine Protein Urine Glucose (UA) Urine Ketones Urine Blood Urine Nitrate Urine Bilirubin Urine Urobilinogen Ur Leukocyte Esterase Urine RBC (Auto) Urine Microscopic WBC Ur Squamous Epith Cells Urine Bacteria Hyaline Casts Urine Opiates Screen Urine Methadone Screen Ur Barbiturates Screen Ur Phencyclidine Scrn Ur Amphetamines Screen U Benzodiazepines Scrn U Oth Cocaine Metabols U Cannabinoids Screen Alcohol, Quantitative Influenza Typ A,B (EIA) Blood Type Antibody Screen BBK History Checked Assessment & Plan (1) Syncope Assessment and Plan: Does not appear to be Cardiac in origin most likely Seizure; given the fact that pt was incontient of Urine and feces Status: Acute (2) Bradycardia Assessment and Plan: Pt has had a bradycardic rhythm for > 2 yrs w/o any problems Status: Acute
[2017-05-15] MEDS ORDERED: Potassium Chloride 20 mEq ER Tab PO ONE (09:58)
--- NOTE | 2017-05-15 10:33 | CARD ---
APPROVED REPORT EKG Measurement Heart [id number] <Conclusion> Sinus bradycardia Otherwise normal ECG
[2017-05-15] MEDS: levoFLOXacin 500 MG TAB PO SCH (11:33)
--- NOTE | 2017-05-15 15:18 | CP.PCM.PN ---
Subjective - Date & Time of Evaluation Date of Evaluation: 05/15/17 Time of Evaluation: 09:15 - Subjective Subjective: No fever complains of cough , + nasal congestion no CP no headache no dizziness no visual sxs no focal neuro deficit no abd pain no N/V no urinary sxs Sinus ruperto on Tele monitoring Objective - Vital Signs/Intake and Output Vital Signs (last 24 hours): Temp Pulse Resp BP Pulse Ox 97.5 F L 52 L 18 108/63 96 05/15/17 12:58 05/15/17 12:58 05/15/17 12:58 05/15/17 12:58 05/15/17 12:58 - Medications Medications: Current Medications Acetaminophen (Tylenol 325mg Tab) 650 mg PO Q6 PRN PRN Reason: Pain, Mild (1-3) Last Admin: 05/15/17 08:23 Dose: 650 mg Al Hydrox/Mg Hydrox/Simethicone (Maalox Plus 30 Ml) 30 ml PO Q6 PRN PRN Reason: Indigestion / Heartburn Benzonatate (Tessalon Perles) 100 mg PO TID [facility] Last Admin: 05/15/17 11:33 Dose: 100 mg Guaifenesin (Robitussin) 200 mg PO Q6 PRN PRN Reason: Cough Last Admin: 05/15/17 08:25 Dose: 200 mg Levofloxacin (Levaquin) 500 mg PO DAILY STAS PRN Reason: Protocol Last Admin: 05/15/17 11:33 Dose: 500 mg Mirtazapine (Remeron) 15 mg PO HS [facility] Last Admin: 05/14/17 22:47 Dose: Not Given - Labs Labs: 05/15/17 06:30 05/15/17 06:30 PT 11.4 Seconds (9.8-13.1) 05/14/17 16:39 INR 1.0 (0.9-1.2) 05/14/17 16:39 APTT 25.7 Seconds (25.6-37.1) 05/14/17 16:39 - Constitutional Appears: No Acute Distress - Head Exam Head Exam: NORMAL INSPECTION, NORMOCEPHALIC - Eye Exam Eye Exam: EOMI, Normal appearance, PERRL Pupil Exam: NORMAL ACCOMODATION - ENT Exam ENT Exam: Mucous Membranes Moist, Normal External Ear Exam - Neck Exam Neck Exam: Full ROM. absent: Meningismus - Respiratory Exam Respiratory Exam: Rhonchi, NORMAL BREATHING PATTERN. absent: Rales, Wheezes, Respiratory Distress - Cardiovascular Exam Cardiovascular Exam: REGULAR RHYTHM, +S1, +S2 - GI/Abdominal Exam GI & Abdominal Exam: Soft, Normal Bowel Sounds. absent: Tenderness - Extremities Exam Extremities Exam: Full ROM, Normal Capillary Refill. absent: Calf Tenderness, Pedal Edema Additional comments: moves all extremities, no pain on ROM - ambulates to the bathroom by herself - Back Exam Back Exam: Full ROM. absent: CVA tenderness (L), CVA tenderness (R) - Neurological Exam Neurological Exam: Alert, Awake, CN II-XII Intact, Oriented x3 Neuro motor strength exam: Left Upper Extremity: 5, Right Upper Extremity: 5, Left Lower Extremity: 5, Right Lower Extremity: 5 - Psychiatric Exam Psychiatric exam: Normal Affect, Normal Mood - Skin Skin Exam: Dry, Normal Color, Warm Assessment and Plan - Assessment and Plan (Free Text) Assessment: 67 y/o lady with hx of HTN, Depression, pre DM, was brought in after a syncopal episode. The patient had been having resp sxs x 1 wk. Took Theraflu for this. Had syncope , woke up soiled in urine and feces. Sustained frontal abrasion and trauma to her front teeth. 1) Syncope in the setting of bradycardia, unclear etiology, r/o cardiogenic ( sick sinus syndrome), also neurogenic (r/o seizure etiology) - Cardio Consultation with Dr. Kenney- felt that syncope was not cardiac - Echocardiogram - EKG daily - Troponin WNL - Consultation with Dr. Shepard - rec MRI of brain and EEG - pt bradycardic but otherwise hemodynamically stable , has alway been bradycardic even on previous admissions and asymptomatic - CT of head , maxillofacial : negative 2. Sinus Bradycardia - has been bradycardic for years and asymptomatic 3. Acute Bronchitis start Levaquin PO and Tessalon perles 4. ? UTI - pt on PO Levaquin - Urine c/s - pt has no fever, no WBC ct 5. Essential hypertension- normotensive at this point - Holding all antihypertensive medications - Monitor vitals - Restart her lisinopril/HCTZ if BP increases 6. Prediabetes hx - No hyperglycemia on admission - Monitor with BMP for now 7. Adrenal mass, history - Worked up as outpt and was told danny works normal - Patient to have biopsy scheduled as outpatient 8. Hx gastritis - Maalox PRN 9. DVT prophylaxis - SCDs
--- NOTE | 2017-05-15 16:51 | US ---
PROCEDURE: Carotid arterial ultrasound examination HISTORY: syncope COMPARISON: Not available TECHNIQUE: Ultrasound examination was performed utilizing a linear array color Doppler transducer. FINDINGS: RIGHT CAROTID ARTERY: Intimal thickening is noted throughout the common carotid artery. There is mild atheromatous plaque in the distal common carotid artery. There is mild calcified atheromatous plaque noted in the carotid bulb. Peak systolic velocity measurements: CCA: 51.9 cm/sec ICA: 60.7 cm/sec ICA/CCA peak systolic velocity ratio: 1.2 Antegrade flow demonstrated in vertebral artery LEFT CAROTID ARTERY: Intimal thickening is seen throughout the common carotid artery. There is minimal calcified atheromatous plaque seen in the carotid bulb. Peak systolic velocity measurements: CCA: 53.8 cm/sec ICA: 70.4 cm/sec ICA/CCA peak systolic velocity ratio: 1.3 Antegrade flow demonstrated in vertebral artery IMPRESSION: Less than 50 percent stenosis of the right and left internal carotid artery by modified NASCET criteria (SRU). Antegrade flow demonstrated in both vertebral arteries.
--- NOTE | 2017-05-15 22:12 | CON ---
DATE: 05/15/2017 REASON FOR CONSULTATION: Status post fall, ? seizures. CHIEF COMPLAINT: The patient was brought into [facility] with a history of syncopal attack and a fall at home. From neurological point of view, I was called in to evaluate her for further management. HISTORY OF PRESENT ILLNESS: Ms. Rosalia Chauhan is a 67-year-old right-handed female who is at a set up house, woke up on Tuesday night, around midnight she went to the bathroom, next thing she realized she woke on the floor with face down. She injured her lip. At the time, she woke up, she soiled herself with urine and feces. This episodes never happened in the past. However, she admits at least she goes to the bathroom for #1 as well as #2 for more than 20 to 30 times per day. No abdominal pain, no nausea, no vomiting, no headache, no preceding symptoms except she has been having flu and taking Theraflu. PAST MEDICAL HISTORY: Hypertension, prediabetes, and dementia. ALLERGIES: NO KNOWN ALLERGIES. REVIEW OF SYSTEMS: Twelve-point systems had been reviewed. From neuro standpoint, loss of consciousness and head trauma. MEDICATIONS: Levaquin, Remeron, Robitussin, and acetaminophen for pain. PHYSICAL EXAMINATION: VITAL SIGNS: Blood pressure 108/63, mean arterial pressure of 78, respiratory rate 18, temperature 97.5 with a pulse rate of 52, regular. NECK: Supple. No carotid bruits. HEART: Sounds are regular. CHEST: Fair air entry. EXTREMITIES: No edema of legs. NEUROLOGICAL EXAMINATION: MENTAL STATUS EXAMINATION: She is awake, alert and oriented to person, place, and time. Speech is clear. Naming, repetition, fluency, comprehension all within normal. CRANIAL NERVE EXAMINATION: Visual field is intact. Pupils reactive to light. Extraocular movement normal. No nystagmus. No facial sensory deficit. No facial asymmetry. Hearing is normal. Tongue is midline. Good gag. MOTOR EXAMINATION: Outstretched hand with eyes closed, no drift is noted. Probably symmetric on either side. DEEP TENDON REFLEXES: Biceps, brachioradialis, and triceps, knee and ankle all are 2+. Plantars are downgoing. SENSORY EXAMINATION: Grossly intact. GAIT: Romberg's negative. Tandem is good. WORKUP: CT of the head reviewed by me, no acute pathology is noted. Chest x-ray is normal. BLOOD WORKUP: WBC 8.0, hemoglobin 12.3, hematocrit 36.1, platelet 152. PT 11.4, INR 1.0, PTT 25.7. Sodium 137, potassium 3.5, chloride 103, bicarbonate 30, BUN 24, creatinine 0.9, GFR more than 60. Glucose 149. Urine for toxicology negative. Urinalysis showed wbc 16 and cast at 3 to 5. CONCLUSION: Ms. Rosalia Chauhan has been suffering from status post fall. From neurological examination, the patient does not show any long tract sign. Her fall probably is related to a vasovagal attack secondary to her bladder distention or defecation. However, from neurological point of view, seizures should be ruled out. RECOMMENDATION: Since the new onset of the seizures had been more than 24-hour period, the patient need MRI of the brain and electroencephalogram including carotid Doppler. If the MRI of the brain does not show any focal pathology from neurological point of view, the patient can be discharged and should follow up visit with me as an outpatient. I also advised her not to take any cold medicine at present time until her workup is completed. The patient's condition also had been well discussed with her daughter. The patient can be benefited by seeing a boat master also to rule out any cardiac related syncope. The patient's condition has been discussed with family members. The patient will be followed while she is in the hospital, otherwise I gave my card to follow up with me as an outpatient. Rogelio Shepard MD
[2017-05-16] MEDS ORDERED: Gadodiamide 287 MG/ML VIAL (15ML) IV ONE (09:26)
[2017-05-16] MEDS: levoFLOXacin 500 MG TAB PO SCH (11:05)
--- NOTE | 2017-05-16 12:36 | MRI ---
PROCEDURE: MRI BRAIN WITH AND WITHOUT CONTRAST HISTORY: ATTEN MESIAL TEMP LOBE - VOL ANALYSIS COMPARISON: Comparison is made with previous CT dated 05/14/2017 TECHNIQUE: Multiplanar, multisequence MR images of the brain were obtained with and without intravenous contrast enhancement. FINDINGS: HEMORRHAGE: None DWI: No evidence of an acute or early subacute infarction. BRAIN PARENCHYMA: No mass,mass effect or edema. That temporal lobes are symmetrical in size and shape. There is no evidence of mass lesion or abnormal asymmetrical enhancement in the temporal lobes. Mild volume loss is again noted. ENHANCEMENT: No abnormal intracranial enhancement. VENTRICLES: Unremarkable. No hydrocephalus. CRANIUM: Unremarkable. ORBITS: Grossly unremarkable. PARANASAL SINUSES/MASTOIDS: Moderate mucosal thickening seen in the right maxillary sinus. Mild mucosal thickening in the ethmoid sinuses right more than left is also noted. VASCULAR SYSTEM: Skull base flow voids intact. OTHER FINDINGS: None . IMPRESSION: No evidence of acute infarction intracranial hemorrhage intracranial collection mass effect or midline shift. Symmetrical size and shape of the temporal lobes without evidence of abnormal enhancement. Mild volume loss.
--- NOTE | 2017-05-16 15:14 | CP.PCM.DIS ---
Provider - Provider Date of Admission: 05/15/17 15:17 Attending physician: Veto Farias DO Primary care physician: Dr Bee Consults: Cardio : Dr Kenney Neuro: Dr Shepard Time Spent in preparation of Discharge (in minutes): 40 Diagnosis - Discharge Diagnosis (1) Syncope Status: Acute (2) Fall Status: Acute (3) Head trauma Status: Acute (4) Bradycardia Status: Chronic (5) Adrenal mass Status: Chronic (6) UTI (urinary tract infection) Status: Acute (7) Acute bronchitis Status: Acute Hospital Course - Lab Results Lab Results: Micro Results 05/14/17 16:54 Blood Blood Culture - Preliminary NO GROWTH AFTER 24 HOURS 05/14/17 16:30 Blood Blood Culture - Preliminary NO GROWTH AFTER 24 HOURS Most Recent Lab Values WBC 8.0 K/uL (4.8-10.8) 05/15/17 06:30 RBC 4.16 Mil/uL (3.80-5.20) 05/15/17 06:30 Hgb 12.3 g/dL (12.0-16.0) 05/15/17 06:30 Hct 36.1 % (34.0-47.0) 05/15/17 06:30 MCV 86.8 fl (81.0-99.0) 05/15/17 06:30 MCH 29.6 pg (27.0-31.0) 05/15/17 06:30 MCHC 34.1 g/dL (33.0-37.0) 05/15/17 06:30 RDW 13.9 % (11.5-14.5) 05/15/17 06:30 Plt Count 152 K/uL (130-400) 05/15/17 06:30 MPV 9.0 fl (7.2-11.7) 05/14/17 16:39 Neut % (Auto) 49.9 % (50.0-75.0) L 05/14/17 16:39 Lymph % (Auto) 38.5 % (20.0-40.0) 05/14/17 16:39 Callahan % (Auto) 9.0 % (0.0-10.0) 05/14/17 16:39 Eos % (Auto) 1.9 % (0.0-4.0) 05/14/17 16:39 Baso % (Auto) 0.7 % (0.0-2.0) 05/14/17 16:39 Neut # 3.5 K/uL (1.8-7.0) 05/14/17 16:39 Lymph # 2.7 K/uL (1.0-4.3) 05/14/17 16:39 Callahan # 0.6 K/uL (0.0-0.8) 05/14/17 16:39 Eos # 0.1 K/uL (0.0-0.7) 05/14/17 16:39 Baso # 0.0 K/uL (0.0-0.2) 05/14/17 16:39 PT 11.4 Seconds (9.8-13.1) 05/14/17 16:39 INR 1.0 (0.9-1.2) 05/14/17 16:39 APTT 25.7 Seconds (25.6-37.1) 05/14/17 16:39 pO2 45 mm/Hg (30-55) 05/14/17 16:29 VBG pH 7.40 (7.32-7.43) 05/14/17 16:29 VBG pCO2 45 mmHg (40-60) 05/14/17 16:29 VBG HCO3 26.4 mmol/L 05/14/17 16:29 VBG Total CO2 29.3 mmol/L (22-28) H 05/14/17 16:29 VBG O2 Sat (Calc) 85.1 % (40-65) H 05/14/17 16:29 VBG Base Excess 2.5 mmol/L (0.0-2.0) H 05/14/17 16:29 VBG Potassium 3.3 mmol/L (3.6-5.2) L 05/14/17 16:29 Sodium 135.0 mmol/L (132-148) 05/14/17 16:29 Chloride 107.0 mmol/L (98-107) 05/14/17 16:29 Glucose 108 mg/dL (65-105) H 05/14/17 16:29 Lactate 1.8 mmol/L (0.7-2.1) 05/14/17 16:29 FiO2 21.0 % 05/14/17 16:29 Sodium 137 mmol/l (132-148) 05/15/17 06:30 Potassium 3.5 MMOL/L (3.6-5.0) L 05/15/17 06:30 Chloride 103 mmol/L (98-107) 05/15/17 06:30 Carbon Dioxide 30 mmol/L (22-30) 05/15/17 06:30 Anion Gap 8 (10-20) L 05/15/17 06:30 BUN 24 mg/dl (7-17) H 05/15/17 06:30 Creatinine 0.9 mg/dl (0.7-1.2) 05/15/17 06:30 Est GFR ( Amer) > 60 05/15/17 06:30 Est GFR (Non-Af Amer) > 60 05/15/17 06:30 POC Glucose (mg/dL) 104 mg/dL (65-110) 05/16/17 11:06 Random Glucose 113 mg/dL (65-105) H 05/15/17 06:30 Hemoglobin A1c 7.9 % (4.2-6.5) H 05/14/17 20:14 Calcium 9.1 mg/dL (8.4-10.2) 05/15/17 06:30 Phosphorus 4.1 mg/dl (2.5-4.5) 05/14/17 16:39 Magnesium 2.6 MG/DL (1.6-2.3) H 05/14/17 16:39 Total Bilirubin 0.6 mg/dl (0.2-1.3) 05/14/17 16:39 AST 32 U/L (14-36) 05/14/17 16:39 ALT 36 U/L (9-52) 05/14/17 16:39 Alkaline Phosphatase 59 U/L (38-126) 05/14/17 16:39 Total Creatine Kinase 67 U/L (30-135) 05/14/17 16:39 Troponin I 0.0130 ng/mL (0.00-0.120) 05/14/17 16:39 NT-Pro-B Natriuret Pep 49.2 pg/ml (0-900) 05/14/17 16:39 Total Protein 8.4 G/DL (6.3-8.2) H 05/14/17 16:39 Albumin 4.6 g/dL (3.5-5.0) 05/14/17 16:39 Globulin 3.8 gm/dL (2.2-3.9) 05/14/17 16:39 Albumin/Globulin Ratio 1.2 (1.0-2.1) 05/14/17 16:39 Triglycerides 432 mg/DL (0-149) H 05/14/17 20:14 Cholesterol 170 mg/dL (0-199) 05/14/17 20:14 LDL Cholesterol Direct 84 mg/dL (0-129) 05/14/17 20:14 HDL Cholesterol 23 MG/DL (30-70) L 05/14/17 20:14 TSH 3rd Generation 0.98 mIU/ML (0.46-4.68) 05/14/17 16:39 Prolactin 8.8 ng/mL (3.0-18.9) 05/15/17 12:00 Venous Blood Potassium 3.3 mmol/L (3.6-5.2) L 05/14/17 16:29 Urine Color Yellow (YELLOW) 05/14/17 17:39 Urine Clarity Slighty-cloudy (Clear) 05/14/17 17:39 Urine pH 5.0 (5.0-8.0) 05/14/17 17:39 Ur Specific [place] 1.011 (1.003-1.030) 05/14/17 17:39 Urine Protein Negative mg/dL (NEGATIVE) 05/14/17 17:39 Urine Glucose (UA) Neg mg/dL (Normal) 05/14/17 17:39 Urine Ketones Negative mg/dL (NEGATIVE) 05/14/17 17:39 Urine Blood Negative (NEGATIVE) 05/14/17 17:39 Urine Nitrate Negative (NEGATIVE) 05/14/17 17:39 Urine Bilirubin Negative (NEGATIVE) 05/14/17 17:39 Urine Urobilinogen 0.2-1.0 mg/dL (0.2-1.0) 05/14/17 17:39 Ur Leukocyte Esterase Trace Yasmin/uL (Negative) 05/14/17 17:39 Urine RBC (Auto) 3 /hpf (0-3) 05/14/17 17:39 Urine Microscopic WBC 16 /hpf (0-5) H 05/14/17 17:39 Ur Squamous Epith Cells 4 /hpf (0-5) 05/14/17 17:39 Urine Bacteria Rare (<OCC) 05/14/17 17:39 Hyaline Casts 3-5 /hpf (0-2) H 05/14/17 17:39 Urine Opiates Screen Negative (NEGATIVE) 05/14/17 17:33 Urine Methadone Screen Negative (NEGATIVE) 05/14/17 17:33 Ur Barbiturates Screen Negative (NEGATIVE) 05/14/17 17:33 Ur Phencyclidine Scrn Negative (NEGATIVE) 05/14/17 17:33 Ur Amphetamines Screen Negative (NEGATIVE) 05/14/17 17:33 U Benzodiazepines Scrn Negative (NEGATIVE) 05/14/17 17:33 U Oth Cocaine Metabols Negative (NEGATIVE) 05/14/17 17:33 U Cannabinoids Screen Negative (NEGATIVE) 05/14/17 17:33 Alcohol, Quantitative < 10 mg/dl (0-10) 05/14/17 16:39 Influenza Typ A,B (EIA) Negative for flu a/b (NEGATIVE) 05/14/17 16:48 Blood Type O POSITIVE 05/14/17 16:30 Antibody Screen Negative 05/14/17 16:30 BBK History Checked No verified bt 05/14/17 16:30 - Hospital Course Hospital Course: 67 y/o lady with hx of HTN, Depression, pre DM, was brought in after a syncopal episode. The patient had been having respiratory sxs x 1 wk. Took Theraflu for this. Had syncope , woke up soiled in urine and feces. Sustained frontal abrasion and trauma to her front teeth. CT of head and Maxillofacial : negative. Troponin : negative. Cardio and Neurology consulted. 1) Syncope in the setting of bradycardia, unclear etiology, r/o cardiogenic also neurogenic (r/o seizure etiology) etiology to be determined , further work up as outpt - Cardio Consultation with Dr. Kenney- felt that syncope was not cardiac - Echocardiogram- pending - pt refused to stay for the test - wants to do this as outpt - EKG: no change - Troponin WNL - Consultation with Dr. Shepard - rec MRI of brain and EEG- MRI neg , EEG pending - to be done as outpt - pt bradycardic but otherwise hemodynamically stable , has alway been bradycardic even on previous admissions and asymptomatic - CT of head , maxillofacial : negative - further testing to be done as outpt - pt refused inpatient work up despite explanation of benefits /risk 2. Sinus Bradycardia - has been bradycardic for years and asymptomatic - cleared by Dr Kenney 3. Acute Bronchitis start Levaquin PO and Tessalon perles 4. UTI - pt on PO Levaquin - Urine c/s - pt has no fever, no WBC ct 5. Essential hypertension- normotensive at this point - Holding all antihypertensive medications - Monitor vitals - Restart her lisinopril d/c HCTZ 6. Prediabetes hx - No hyperglycemia on admission - Monitor with BMP for now 7. Adrenal mass, history - Worked up as outpt and was told nlood works normal - Patient to have biopsy scheduled as outpatient 8. Hx gastritis - Maalox PRN 9. DVT prophylaxis - SCDs Discharge Exam - Head Exam Head Exam: NORMOCEPHALIC - Eye Exam Eye Exam: EOMI, Normal appearance, PERRL Pupil Exam: NORMAL ACCOMODATION - ENT Exam ENT Exam: Mucous Membranes Moist, Normal External Ear Exam - Neck Exam Neck exam: Full Rom - Respiratory Exam Respiratory Exam: NORMAL BREATHING PATTERN. absent: Respiratory Distress - Cardiovascular Exam Cardiovascular Exam: Bradycardia, REGULAR RHYTHM, +S1, +S2 - GI/Abdominal Exam GI & Abdominal Exam: Normal Bowel Sounds, Soft. absent: Tenderness - Extremities Exam Extremities exam: full ROM, normal capillary refill, pedal pulses present - Back Exam Back exam: FULL ROM, NORMAL INSPECTION. absent: CVA tenderness (L) - Neurological Exam Neurological exam: Alert, CN II-XII Intact, Normal Gait, Oriented x3, Reflexes Normal - Psychiatric Exam Psychiatric exam: Normal Affect, Normal Mood - Skin Skin Exam: Dry, Normal Color, Warm Discharge Plan - Discharge Medications Prescriptions: Benzonatate [Tessalon Perles] 100 mg PO TID #30 sgl levoFLOXacin [Levaquin] 500 mg PO DAILY #5 tab Lisinopril [Prinivil] 10 mg PO DAILY #30 tablet - Follow Up Plan Condition: GOOD Disposition: HOME/ ROUTINE Instructions: Syncope (DC) Additional Instructions: Pt refused to stay to have EEG and ECHO done as inpatient ff up with Dr Shepard next wk EEG and Echo as outpt lazaro appt with Dr Cristal willis
[2017-05-16 16:08] VITALS: BP 129/87; PULSE 65; RESP 17; TEMP 98.5; O2SAT 98
== END 2017-05-16 17:27 | disposition home or self-care (01) | DRG 101 ==
LOC: H.ER 15:56 → H.ERHOLD 17:29 → H.TEL 19:37 → OBSVTOIN 05-15 15:17
PROVIDERS: ADMIT Internal Medicine; ATTEND Internal Medicine
DX: R56.9 Unspecified convulsions (principal); N39.0 Urinary tract infection, site not specified; F03.90 Unspecified dementia, unspecified severity, without behavioral disturbance, psychotic disturbance, mood disturbance, and anxiety; E27.9 Disorder of adrenal gland, unspecified; R00.1 Bradycardia, unspecified; J20.9 Acute bronchitis, unspecified; J32.0 Chronic maxillary sinusitis; J32.2 Chronic ethmoidal sinusitis; I10 Essential (primary) hypertension; R73.03 Prediabetes; K29.70 Gastritis, unspecified, without bleeding; E78.00 Pure hypercholesterolemia, unspecified; R32 Unspecified urinary incontinence; Z90.49 Acquired absence of other specified parts of digestive tract

== ENCOUNTER 2017-09-08 09:30 | Emergency (ER) | payer MEDICARE, OTHER ==
[2017-09-08 09:50] VITALS: BMI 23.8
--- NOTE | 2017-09-08 09:51 | ED PDOC ---
HPI:STROKE - Time Time: 09:40 - Historian Historian: Patient - Chief Complaint Chief Complaint: Vision loss, other ("tingling") - Onset Date: 09/08/17 Time: 09:20 Onset: Sudden - Timing Timing: Improved - Context Context: Home - Location Locate left: Lower extremity - Severity of pain Maximum severity:: None - Exacerbated by Exacerbated by:: Nothing - TPA Positive for Contraindication: Yes Reason tPA is not being Administered: nih 0 and no significent debilitating symptoms currently - Notes: Notes:: 67yo female with history of diabetes, hypertension and high cholesterol, presents to ED for evaluation of sudden onset vision loss in her bilateral eyes , lasting for 2 minutes occurring 20 minutes prior to arrival. Patient also reports she had tingling to her face and left lower extremity. She states currently the vision loss and face tingling has resolved but the left lower extremity tingling is still mildly present in her left ankle/tibia area. She also reports feeling tired, dizzy and nauseous. She denies any weakness, fever, chills, chest pain, shortness of breath, vomiting, diarrhea, headaches. She has no other complaints. Patient states prior to arrival, she visited her PMD's office but the doctor was not available, prompting her ER visit. PMD: Dr. Bee NIHSS Stroke Scale - Date/Time Evaluation Performed Date Performed: 09/08/17 Time Performed: 09:40 When Was NIHSS Performed: Code Stroke - How Severe is the Stroke Level of Consciousness: 0=Alert LOC to Questions: 0=Both comments correct LOC to commands: 0=Obeys both correctly Best Gaze: 0=Normal Visual: 0=No visual loss Facial: 0=Normal Motor Arm - Left: 0=No drift Motor Arm - Right: 0=No drift Motor Leg - Left: 0=No drift Motor Leg - Right: 0=No drift Limb Ataxia: 0=Absent Sensory: 0=Normal Best Language: 0=No aphasia Dysarthia: 0=Normal articulation Extinction & Inattention (Neglect): 0=Normal, no object Score: 0 rTPA Inclusion/Exclusion - Refusal of Treatment Patient Refused Treatment: No - Inclusion Criteria for Altepase Patient is 18 years or Older: Yes The Clinical Diagnosis of Ischemic Stroke That is Causing a Potentially Disabling Neurological Deficit: No Time of Onset is Well Established to be Less Than 270 Minute Before Treatment Would Begin: Yes Risk/Benefit Discussed With Patient/Family Member Present: No Past Medical History Reviewed: Historical Data, Nursing Documentation, Vital Signs - Medical History PMH: Diabetes (borderline), Gastritis, HTN, Hypercholesterolemia Denies: HIV, Chronic Kidney Disease - Surgical History Surgical History: Appendectomy - Family History Family History: States: No Known Family Hx, Unknown Family Hx - Social History Current smoker - smoking cessation education provided: No Alcohol: None Drugs: Denies - Home Medications Home Medications: Ambulatory Orders Medication Instructions Recorded Mirtazapine [Remeron] 15 mg PO HS 05/14/17 Acetaminophen [Tylenol 325mg tab] 650 mg PO Q6 PRN tab 05/16/17 Benzonatate [Tessalon Perles] 100 mg PO TID #30 sgl 05/16/17 Lisinopril [Prinivil] 10 mg PO DAILY #30 tablet 05/16/17 guaiFENesin [Robitussin] 200 mg PO Q6 PRN udc 05/16/17 levoFLOXacin [Levaquin] 500 mg PO DAILY #5 tab 05/16/17 Aspirin 325 mg PO DAILY #15 tab 09/08/17 - Allergies Allergies/Adverse Reactions: Allergies Allergy/AdvReac Type Severity Reaction Status Date / Time No Known Allergies Allergy Verified 02/14/15 03:24 Review of Systems ROS Statement: Except As Marked, All Systems Reviewed And Found Negative Constitutional: Positive for: Other (feels tired). Negative for: Fever, Chills Eyes: Positive for: Vision Change (now resolved) Cardiovascular: Negative for: Chest Pain Respiratory: Negative for: Shortness of Breath Gastrointestinal: Positive for: Nausea. Negative for: Vomiting, Abdominal Pain , Diarrhea Neurological: Positive for: Numbness, Dizziness. Negative for: Weakness, Headache Physical Exam - Reviewed Nursing Documentation Reviewed: Yes Vital Signs Reviewed: Yes - Physical Exam Appears: Positive for: Non-toxic, No Acute Distress Head Exam: Positive for: ATRAUMATIC, NORMAL INSPECTION, NORMOCEPHALIC Skin: Positive for: Normal Color, Warm, Dry Eye Exam: Positive for: EOMI, Normal appearance, PERRL ENT: Positive for: Normal ENT Inspection Neck: Positive for: Normal, Painless ROM, Supple Cardiovascular/Chest: Positive for: Regular Rate, Rhythm. Negative for: Murmur Respiratory: Positive for: Normal Breath Sounds. Negative for: Wheezing Pulses-Dorsalis Pedis (L): 2+ Pulses-Dorsalis Pedis (R): 2+ Pulses-Radial (L): 2+ Pulses-Radial (R): 2+ Gastrointestinal/Abdominal: Positive for: Normal Exam, Soft. Negative for: Tenderness Back: Positive for: Normal Inspection. Negative for: L CVA Tenderness, R CVA Tenderness Extremity: Positive for: Normal ROM. Negative for: Pedal Edema, Deformity Neurologic/Psych: Positive for: Alert, flat clothier II-XII (intact), Oriented, Cerebellar Tests (normal), Gait (steady), Other (5/5 motor strength bilaterally. 5/5 central supply nurse strength bilaterally.). Negative for: Motor/Sensory Deficits, Aphasia, Facial Droop - Laboratory Results Result Diagrams: 09/08/17 10:12 09/08/17 10:12 Interpretation Of Abn Labs: no acute - ECG ECG: Positive for: Interpreted By Me, Viewed By Me ECG Rhythm: Positive for: Normal QRS, Normal ST Segment, Sinus Rhythm - Radiology X-Ray: Read By Radiologist X-Ray Interpretation: No Acute Disease - CT Scan/US ct Other Rad Studies (CT/US): Radiology Report Reviewed Other Rad Interpretation: no acute Medical Decision Making Medical Decision Making: Impression: Vision change, numbness, r/o stroke Plan: -- Labs -- CT Head w/o contrast -- EKG -- IV Fluids Time: 0956 Case discussed including NIH score and exam findings with Dr. Edmonds, neurologist qa automation engineer. States not a thrombolytic candidate. Will do further workup. Time: 1000 CT Head FINDINGS: HEMORRHAGE: No intracranial hemorrhage. BRAIN: No mass effect or edema. No atrophy or chronic microvascular ischemic changes. VENTRICLES: Unremarkable. No hydrocephalus. CALVARIUM: Unremarkable. PARANASAL SINUSES: Unremarkable as visualized. No significant inflammatory changes. Prior ethmoid and maxillary sinus inflammatory changes not apparent on this exam MASTOID AIR CELLS: Unremarkable as visualized. No inflammatory changes. OTHER FINDINGS: None. IMPRESSION: Normal CT of the Head. Specifically no intracranial hemorrhage or mass effect noted Scribe Attestation: Documented by Ayanna Blakely acting as a scribe for Eugene Alves MD Provider Attestation: All medical record entries made by the Scribe were at my direction and personally dictated by me. I have reviewed the chart and agree that the record accurately reflects my personal performance of the history, physical exam, medical decision making, and the department course for this patient. I have also personally directed, reviewed, and agree with the discharge instructions and disposition. 1239: Stable. AAOx3. Pain free. Spoke with Dr. Edmonds. States based on ABCD2 score pt. can be dc and fu in 2-3 days for MRI and further workup outpt. Pt. currently has no symptoms. Is aaox3. Smiling. Will fu with pcp today/ tomorrow without fail. Aware to get MRI and further evaluation. Will start asa 325 daily. Disposition - Clinical Impression Clinical Impression: Dizziness, Paresthesia - Patient ED Disposition Is Patient to be Admitted: No Counseled Patient/Family Regarding: Studies Performed, Diagnosis, Need For Followup - Disposition Referrals: Travis Bee [Staff Provider] - 09/08/17 Disposition: Routine/Home Disposition Time: 12:54 Condition: STABLE Additional Instructions: Return if not better in 3 days or if any symptoms return. See your doctor today without fail. You will need an MRI, neurological evaluation, and further treatment and management. Prescriptions: Aspirin 325 mg PO DAILY #15 tab Instructions: Dizziness, Nonvertigo, (DC), Paresthesias (DC) Forms: Proton Therapy (Divehi)
[2017-09-08] MEDS ORDERED: Sodium Chloride 0.9% 1,000 ML IV SCH (10:00)
--- NOTE | 2017-09-08 10:02 | CT ---
PROCEDURE: CT HEAD WITHOUT CONTRAST. HISTORY: code stroke COMPARISON: 05/14/2017 TECHNIQUE: Axial computed tomography images were obtained through the head/brain without intravenous contrast. Radiation dose: Total exam DLP = 799 mGy-cm. This CT exam was performed using one or more of the following dose reduction techniques: Automated exposure control, adjustment of the mA and/or kV according to patient size, and/or use of iterative reconstruction technique. FINDINGS: HEMORRHAGE: No intracranial hemorrhage. BRAIN: No mass effect or edema. No atrophy or chronic microvascular ischemic changes. VENTRICLES: Unremarkable. No hydrocephalus. CALVARIUM: Unremarkable. PARANASAL SINUSES: Unremarkable as visualized. No significant inflammatory changes. Prior ethmoid and maxillary sinus inflammatory changes not apparent on this exam MASTOID AIR CELLS: Unremarkable as visualized. No inflammatory changes. OTHER FINDINGS: None. IMPRESSION: Normal CT of the Head. Specifically no intracranial hemorrhage or mass effect noted
[2017-09-08 10:20] VITALS: RESP 18
[2017-09-08 10:21] LABS: BASO # 0.1 K/uL (0.0-0.2); BASO % 1.1 % (0.0-2.0); EOS # 0.4 K/uL (0.0-0.7); EOS % 5.4 % (0.0-4.0); HEMOGLOBIN 13.3 g/dL (12.0-16.0); LYMPH # 2.9 K/uL (1.0-4.3); LYMPH % 43.2 % (20.0-40.0); MEAN CELL VOLUME 87.5 fl (81.0-99.0); MEAN CORPUSCULAR HEMOGLOBIN 30.5 pg (27.0-31.0); MEAN CORPUSCULAR HGB CONC 34.9 g/dL (33.0-37.0); MEAN PLATELET VOLUME 8.3 fl (7.2-11.7); MONO # 0.5 K/uL (0.0-0.8); MONO % 8.1 % (0.0-10.0); NEUT # 2.8 K/uL (1.8-7.0); NEUT % 42.2 % (50.0-75.0); RBC 4.37 Mil/uL (3.80-5.20); RED CELL DISTRIBUTION WIDTH 13.7 % (11.5-14.5); WHITE BLOOD COUNT 6.7 K/uL (4.8-10.8)
[2017-09-08 10:26] LABS: PROTHROMBIN TIME 10.9 Seconds (9.8-13.1)
[2017-09-08 10:27] LABS: PARTIAL THROMBOPLASTIN TIME 29.2 Seconds (25.6-37.1)
[2017-09-08 10:33] LABS: ALB/GLOB RATIO 1.1 (1.0-2.1); ALBUMIN 4.2 g/dL (3.5-5.0); ALT/SGPT 32 U/L (9-52); AST/SGOT 22 U/L (14-36); BLOOD UREA NITROGEN 22 mg/dl (7-17); CALCIUM 9.7 mg/dL (8.4-10.2); GFR AFRICAN-AMERICAN > 60; GFR NON-AFRICAN AMERICAN > 60; HDL CHOLESTEROL 30 MG/DL (30-70)
[2017-09-08 10:44] LABS: LDL CHOLESTEROL 103 mg/dL (0-129)
--- NOTE | 2017-09-08 11:20 | RAD ---
HISTORY: Code Stroke COMPARISON: 05/14/2017 and 12/21/2007 FINDINGS: LUNGS: Trace pleural thickening/ trace fluid right minor fissure. Trace discoid atelectasis and/or scarring lateral left mid lung zone most similar with the even earlier exam from 12/21/2007 No interval infiltrate or interval mass appreciated PLEURA: No significant pleural effusion identified, no pneumothorax apparent. CARDIOVASCULAR: Mild cardiomegaly- ventricular enlargement configuration suggested-similar. Pulmonary vasculature within normal limits OSSEOUS STRUCTURES: Thoraco lumbar spondylosis VISUALIZED UPPER ABDOMEN: Normal. OTHER FINDINGS: None. IMPRESSION: Interval trace pleural thickening and/or trace pleural fluid medial right minor fissure. Other findings similar and stable
[2017-09-08 11:58] VITALS: O2SAT 99
[2017-09-08 13:19] VITALS: BP 140/73; PULSE 52; TEMP 98
--- NOTE | 2017-09-09 10:40 | CARD ---
APPROVED REPORT EKG Measurement Heart [id number] <Conclusion> Sinus bradycardia Poor R wave progression V1 to V4 Abnormal ECG
== END 2017-09-08 13:23 | disposition home or self-care (01) ==
LOC: H.ER 09:30
DX: R42 Dizziness and giddiness (principal); R20.2 Paresthesia of skin; E78.00 Pure hypercholesterolemia, unspecified; I10 Essential (primary) hypertension
CPT/HCPCS: 70450; 71045; 80053; 80061; 82948; 83036; 84484; 85025; 85610; 85730; 86850; 86900; 93005; 99285; J7040

== ENCOUNTER 2017-09-20 18:45 | Emergency (ER) | payer MEDICARE, OTHER ==
[2017-09-20 18:45] VITALS: BMI 23.8
[2017-09-20 18:53] VITALS: BP 122/70; PULSE 72; RESP 18; TEMP 97.6; O2SAT 98
--- NOTE | 2017-09-20 19:22 | ED PDOC ---
HPI: Skin/Bite Injury Time Seen by Provider: 09/20/17 18:52 Chief Complaint (Nursing): Abnormal Skin Integrity Chief Complaint (Provider): Abscess History Per: Patient History/Exam Limitations: no limitations Onset/Duration Of Symptoms: Days (x3) Current Symptoms Are (Timing): Still Present Location Of Injury: Right: Back, Posterior: Back Additional Complaint(s): 67 y/o female presents to the ED with a painful mass on the right lower back area. Patient states she noticed the mass 3 days ago and has had similar issues like this in the past which required drainaged by PMD. States she was able to express discharge from the area yesterday. Denies trauma, fever, or antipyretic use. PMD: Dr. Travis Bee Past Medical History Reviewed: Historical Data, Nursing Documentation, Vital Signs Vital Signs: Last Vital Signs Temp 97.6 F 09/20/17 18:52 Pulse 72 09/20/17 18:52 Resp 18 09/20/17 18:52 BP 122/70 09/20/17 18:52 Pulse Ox 98 09/20/17 19:34 - Medical History PMH: Diabetes (borderline), Gastritis, HTN, Hypercholesterolemia Denies: HIV, Chronic Kidney Disease - Surgical History Surgical History: Appendectomy - Family History Family History: States: No Known Family Hx - Social History Current smoker - smoking cessation education provided: No Ex-Smoker (has not smoked in the last 12 months): No Alcohol: None Drugs: Denies - Home Medications Home Medications: Ambulatory Orders Medication Instructions Recorded Mirtazapine [Remeron] 15 mg PO HS 05/14/17 Acetaminophen [Tylenol 325mg tab] 650 mg PO Q6 PRN tab 05/16/17 Benzonatate [Tessalon Perles] 100 mg PO TID #30 sgl 05/16/17 Lisinopril [Prinivil] 10 mg PO DAILY #30 tablet 05/16/17 guaiFENesin [Robitussin] 200 mg PO Q6 PRN udc 05/16/17 levoFLOXacin [Levaquin] 500 mg PO DAILY #5 tab 05/16/17 Aspirin 325 mg PO DAILY #15 tab 09/08/17 Cephalexin [cephalexin] 500 mg PO Q6 #28 cap 09/20/17 Sulfamethoxazole/Trimethoprim 2 tab PO BID #28 tab 09/20/17 [Bactrim DS 800 mg-160 mg] - Allergies Allergies/Adverse Reactions: Allergies Allergy/AdvReac Type Severity Reaction Status Date / Time No Known Allergies Allergy Verified 09/20/17 18:52 Review of Systems ROS Statement: Except As Marked, All Systems Reviewed And Found Negative Constitutional: Negative for: Fever, Other (recent trauma or pain medication use ) Skin: Positive for: Other (painful mass to the RLQ of the back area) Physical Exam - Reviewed Nursing Documentation Reviewed: Yes Vital Signs Reviewed: Yes - Physical Exam Appears: Positive for: Well, Non-toxic, No Acute Distress Skin: Negative for: Normal Color (mass is without drainage, break in skin integrity) Eye Exam: Positive for: Normal appearance Back: Positive for: Other (right lower back area with tender erythematous indurated non-fluctuant mass which is approximately 3cm x 3cm without drianage noted). Negative for: L CVA Tenderness, R CVA Tenderness, Vertebral Tenderness Neurologic/Psych: Positive for: Alert, Oriented (x3). Negative for: Aphasia, Facial Droop - ECG O2 Sat by Pulse Oximetry: 98 (RA) Pulse Ox Interpretation: Normal - Progress ED Course And Treament: Mass was aspirated with no purulent expelled. Medical Decision Making Medical Decision Making: Time: 18:52 Impression: Cellulitis with early abscess * Mass was aspirated under sterile conditions but no purulent material obtained. DSD applied. Scribe Attestation: Documented by Mike Huddleston acting as a scribe for RUTH ANN Henry MDibe Attestation: All medical record entries made by the Scribe were at my direction and personally dictated by me. I have reviewed the chart and agree that the record accurately reflects my personal performance of the history, physical exam, medical decision making, and the department course for this patient. I have also personally directed, reviewed, and agree with the discharge instructions and disposition. Disposition - Clinical Impression Clinical Impression: Cellulitis, Abscess - Patient ED Disposition Is Patient to be Admitted: No - Disposition Referrals: Pamela Andrews [Outside] Disposition: Routine/Home Disposition Time: 19:30 Condition: STABLE Additional Instructions: Follow up with your doctor in 2 days for further evaluation. Return to ED immediately if symptoms worsen. Prescriptions: Cephalexin [cephalexin] 500 mg PO Q6 #28 cap Sulfamethoxazole/Trimethoprim [Bactrim DS 800 mg-160 mg] 2 tab PO BID #28 tab Instructions: Boil (DC), Cellulitis (Skin Infection), Adult (DC) Forms: [employer] (Kyrgyz) Print Language: CHINESE
== END 2017-09-20 20:10 | disposition home or self-care (01) ==
LOC: H.ER 18:45
DX: L02.212 Cutaneous abscess of back [any part, except buttock and flank] (principal); E78.00 Pure hypercholesterolemia, unspecified; I10 Essential (primary) hypertension; Z79.82 Long term (current) use of aspirin

== ENCOUNTER 2018-08-11 12:15 | Emergency (ER) | payer MEDICARE, OTHER ==
[2018-08-11 12:15] VITALS: BMI 23.8
[2018-08-11 13:58] VITALS: BP 115/76; PULSE 64; RESP 18; TEMP 98.6; O2SAT 96
--- NOTE | 2018-08-11 15:21 | ED PDOC ---
Lower Extremity Pain/Injury Time Seen by Provider: 08/11/18 14:21 Chief Complaint (Nursing): Lower Extremity Problem/Injury Chief Complaint (Provider): Lower Extremity Problem/Injury History Per: Patient History/Exam Limitations: no limitations Onset/Duration Of Symptoms: Days (x3 weeks) Current Symptoms Are (Timing): Still Present Additional Complaint(s): 68 y/o female with a PMHx of HTN, Dementia and DM presents to the ED for evaluation of left ankle pain and swelling, onset three weeks ago. Patient notes of initially seeing her PMD at the onset of pain and was given a shot in the buttocks that helped relieve the pain. Patient was told the shot was for possible arthritis. Patient states swelling has worsened since onset and is located to the medial ankle. Patient reports ankle turned black and blue at one point. Of note, patient reports of experiencing similar pain in the past and was injected with some medication to the ankle. Patient states swelling and pain went away at that time. Patient notes that pain currently worsens with walking. Patient reports of taking Tylenol, Advil and Naproxen with temporary relief of pain. Patient additionally notes of last taking Tylenol earlier this morning. Otherwise, patient denies injuries, fall, twisting of the ankle, numbness, tingling, calf pain and swelling. PMD: Jesus Bee Past Medical History Reviewed: Historical Data, Nursing Documentation, Vital Signs Vital Signs: Last Vital Signs Temp 98.6 F 08/11/18 13:54 Pulse 64 08/11/18 13:54 Resp 18 08/11/18 13:54 BP 115/76 08/11/18 13:54 Pulse Ox 96 08/11/18 13:54 - Medical History PMH: Diabetes (borderline), Gastritis, HTN, Hypercholesterolemia Denies: HIV, Chronic Kidney Disease - Surgical History Surgical History: Appendectomy - Family History Family History: States: Unknown Family Hx - Home Medications Home Medications: Ambulatory Orders Medication Instructions Recorded Mirtazapine [Remeron] 15 mg PO HS 05/14/17 Acetaminophen [Tylenol 325mg tab] 650 mg PO Q6 PRN tab 05/16/17 Benzonatate [Tessalon Perles] 100 mg PO TID #30 sgl 05/16/17 Lisinopril [Prinivil] 10 mg PO DAILY #30 tablet 05/16/17 guaiFENesin [Robitussin] 200 mg PO Q6 PRN udc 05/16/17 levoFLOXacin [Levaquin] 500 mg PO DAILY #5 tab 05/16/17 Aspirin 325 mg PO DAILY #15 tab 09/08/17 Cephalexin [cephalexin] 500 mg PO Q6 #28 cap 09/20/17 Sulfamethoxazole/Trimethoprim 2 tab PO BID #28 tab 09/20/17 [Bactrim DS 800 mg-160 mg] Naproxen 500 mg PO BID #20 tab 08/11/18 - Allergies Allergies/Adverse Reactions: Allergies Allergy/AdvReac Type Severity Reaction Status Date / Time No Known Allergies Allergy Verified 09/20/17 18:52 Review of Systems ROS Statement: Except As Marked, All Systems Reviewed And Found Negative Musculoskeletal: Positive for: Foot Pain. Negative for: Leg Pain (calf pain) Neurological: Negative for: Numbness Physical Exam - Reviewed Nursing Documentation Reviewed: Yes Vital Signs Reviewed: Yes - Physical Exam Comments: GENERAL APPEARANCE: Patient is awake, alert, oriented x 3, in no acute distress. Patient appears well and in no obvious discomfort. SKIN: Warm, dry; (-) cyanosis. LOWER EXTREMITY: Ankle: (+) moderate swelling, tenderness of the medial malle olus, (-) erythema, (-) warm to touch ; (-) swelling and tenderness of the lateral ankle, lateral malleolus; (+) limited range of motion secondary to pain. (-) abrasions, lacerations or openings in the skin. Achilles tendon intact and nontender. Knee and foot: (-) injury. (-) calf tenderness, (-) palpable cords. Cap refill < 2 seconds CARDIOVASCULAR: (+) normal distal pulses. NEUROLOGIC: (+) distal sensation. - ECG O2 Sat by Pulse Oximetry: 96 (RA) Pulse Ox Interpretation: Normal Medical Decision Making Medical Decision Making: Time: 1421 Impression: Left Lower Extremity Pain Plan: -- Toradol 30 mg IM -- Ankle Left XR 3 Views 15:45 XR reviewed by me shows moderate DJD, no acute fx or dislocation on re eval pt's pain is improved, (+)FROM, katie wrap and air cast applied Discussed results, diagnosis, treatment, return precautions and f/u with pt who is understanding, in agreement and stable for dc Scribe Attestation: Documented by Ana Bautista, acting as a scribe Binu Marquez PA-C. Provider Scribe Attestation: All medical record entries made by the Scribe were at my direction and personally dictated by me. I have reviewed the chart and agree that the record accurately reflects my personal performance of the history, physical exam, medical decision making, and the department course for this patient. I have also personally directed, reviewed, and agree with the discharge instructions and disposition. Disposition - Clinical Impression Clinical Impression: Osteoarth NOS-ankle - Patient ED Disposition Is Patient to be Admitted: No Counseled Patient/Family Regarding: Studies Performed, Diagnosis, Need For Followup, Rx Given - Disposition Referrals: Jorge Rivera III, MD [Staff Provider] - Akbar Coy DPM [Staff Provider] - Disposition: Routine/Home Disposition Time: 15:47 Condition: IMPROVED Additional Instructions: Return to ED for new or worsening symptoms, fever >100.4, numbness or tingling, redness or warm to touch. FOllow up with an foot/ankle doctor or orthopedist in 3-5 days. Rest, ice and elevate your leg. Wear katie wrap for compression and air cast for support. Take Naproxen as prescribed for pain and inflammation. Do not take Ibuprofen with it. Prescriptions: Naproxen 500 mg PO BID #20 tab Instructions: Osteoarthritis (DC) Forms: [employer] (Greek) Print Language: SAMI - POA Present On Arrival: None
--- NOTE | 2018-08-11 16:31 | RAD ---
Date of service: 08/11/2018 PROCEDURE: Left Ankle Radiographs. HISTORY: pain swelling medial COMPARISON: None available. TECHNIQUE: 3 views obtained. FINDINGS: BONES: No acute fractures. Plantar and Achilles tendon insertion spurs. Radiographic manifestations of prior trauma particularly medially with respect to the distal tibia and adjacent talus. JOINTS: Normal. No osteoarthritis. Ankle mortise maintained. Talar dome intact SOFT TISSUES: Medial lateral soft tissue swelling. OTHER FINDINGS: None. IMPRESSION: Soft tissue swelling without acute articular or osseous abnormality.
== END 2018-08-11 16:39 | disposition home or self-care (01) ==
LOC: H.ER 12:15
DX: M19.072 Primary osteoarthritis, left ankle and foot (principal); E78.00 Pure hypercholesterolemia, unspecified; I10 Essential (primary) hypertension
CPT/HCPCS: 29540; 73610; 96372; 99284; J1885